=== PATIENT | male | born 1955 | race Native Hawaiian/Other Pacific Islander ===

== ENCOUNTER → 2016-06-19 | Outpatient (CLI) | payer BC, SELFPAY ==
--- NOTE | 2016-06-22 07:27 | CT ---
EXAM DESCRIPTION: CT HEAD WITHOUT IV CONTRAST CLINICAL HISTORY: 60 y/o M, HEADACHE COMPARISON: None TECHNIQUE: Head CT was performed without IV contrast. FINDINGS: There is no acute intracranial hemorrhage. There is no midline shift or other mass effect. The ventricles and basilar cisterns are well maintained. Russ-white matter differentiation is intact. Mucoperiosteal thickening is noted in the right sphenoid sinus. Otherwise, visualized paranasal sinuses and orbits are unremarkable. There is no calvarial fracture. IMPRESSION: Right sphenoid sinusitis, probably chronic. No additional intracranial abnormality to explain headache. Electronically signed by: Amador Hoyt DO 06/22/2016 07:26
== END | disposition home or self-care (01) ==
LOC: CT 10:47
PROVIDERS: ATTEND General Practice
DX: R51 Headache (principal)